=== PATIENT | female | born 1960 | race Caucasian/White ===

== ENCOUNTER → 2016-11-02 | Outpatient (CLI) | payer BC ==
[2016-11-02 14:39] LABS: Basophils % (A) 0 %; CH 30.3; CHCM 32.9; Eosinophils # (A) 0.2 k/uL (0-0.7); Eosinophils % (A) 3 %; HCT 43.2 % (34.0-46.0); HDW 2.33; HGB 14.3 gm/dL (11.4-16.0); Luc # (Auto) 0.11; Luc % (Auto) 2; Lymphocytes # (A) 2.4 k/uL (1.0-4.8); Lymphocytes % (A) 31 %; MCH 30.5 pg (25.0-35.0); MCV 92.5 fL (80.0-100.0); Mean Platelet Volume 7.1; Monocytes # (A) 0.3 k/uL (0-1.0); Monocytes % (A) 4 %; Neutrophils # (A) 4.7 k/uL (1.3-7.7); Neutrophils % (A) 61 %; RBC 4.67 m/uL (3.80-5.40); RDW 13.1 % (11.5-15.5); WBC 7.7 k/uL (3.8-10.6); WBC (Perox) 7.84
[2016-11-02 14:44] LABS: Partial Thromboplastin Time 24.2 sec (22.0-30.0); Prothrombin Time 10.1 sec (9.0-12.0)
[2016-11-02 14:50] LABS: Anion Gap 11 mmol/L; Blood Urea Nitrogen 13 mg/dL (7-17); Calcium 10.1 mg/dL (8.4-10.2); Carbon Dioxide 27 mmol/L (22-30); Chloride 103 mmol/L (98-107); Glucose 102 mg/dL (74-99); Non-African American GFR(MDRD) >60 (>60 ml/min/1.73 sqM); Potassium 4.6 mmol/L (3.5-5.1); Sodium 141 mmol/L (137-145)
[2016-11-02 15:01] LABS: Appearance,Urine Clear (Clear); Bacteria,Urine Rare /hpf; Bilirubin,Urine Negative (Negative); Glucose,Urine (UA) 3+ (Negative); Ketones,Urine Negative (Negative); Leukocyte Esterase,Urine Small (Negative); Mucus,Urine Rare /hpf; Nitrite,Urine Negative (Negative); PH, Urine 5.5 (5.0-8.0); Particle Count 1696; Protein,Urine Negative (Negative); RBC,Urine <1 /hpf (0-5); Specific Gravity,Urine 1.011 (1.001-1.035); Squamous Epithelial Cell,Urine <1 /hpf (0-4); UA Billing (MACRO vs. MICRO) MICRO; Urobilinogen,Urine <2.0 mg/dL (<2.0); WBC,Urine 2 /hpf (0-5)
--- NOTE | 2016-11-02 15:59 | XR ---
EXAMINATION TYPE: XR chest 2V DATE OF EXAM: 11/02/2016 2:45 PM COMPARISON: Prior chest x-ray second of March 2016 HISTORY: Presurgical testing TECHNIQUE: Frontal and lateral views of the chest are obtained. FINDINGS: There is no focal air space opacity, pleural effusion, or pneumothorax seen. The cardiac silhouette size is within normal limits. Lung volumes are prominent. Postop change noted in the lowe r cervical spine, right shoulder. The osseous structures are intact. IMPRESSION: No acute cardiopulmonary process.
== END ==
LOC: LABPAT 14:09
PROVIDERS: ATTEND Orthopaedic Surgery Orthopaedic Surgery of the Spine
DX: Z01.818 Encounter for other preprocedural examination (principal); Z01.810 Encounter for preprocedural cardiovascular examination; Z01.812 Encounter for preprocedural laboratory examination
CPT/HCPCS: 36415; 71020; 80048; 81001; 85025; 85610; 85730; 86850; 86900; 86901; 87070

== ENCOUNTER 2016-11-08 06:24 | Day surgery (SDC) | payer BC ==
[~2016-11-08 06:24] MED LIST: BACITRACIN 50,000 UNIT, POLYMYXIN B 500,000 UNIT in SODIUM CHLORIDE 0.9% IRRIGATIO 1,00... IRRIGATION ONE; DEXAMETHASONE SOD PHOSPHATE 10 MG/ML 1 ML VIAL IV ONE; LACTATED RINGERS 1,000 ML IV SCH; MIDAZOLAM 2 MG/2 ML VIAL IV PRN; ONDANSETRON 4 MG/2 ML VIAL IVP ONE; SCOPOLAMINE 1.5MG/72HR PATCH TRANSDERM ONE; ceFAZolin 2 GM in SODIUM CHLORIDE 0.9% 100 ML IVPB ONE; fentaNYL (PF) 50 MCG/ML 2 ML AMP IV PRN
[2016-11-08] MEDS ORDERED: LIDOCAINE 1% 20 ML VIAL (10MG/ML) FOR IV START INTRADERMA ONE (07:08)
[2016-11-08 07:17] LABS: Glucose,Whole Blood 129 mg/dL (75-99)
[2016-11-08] MEDS ORDERED: GELATIN SPONGE,ABSORB (LARGE) 1 EACH SPONGE TOPICAL ONE (07:36)
[2016-11-08] MEDS ORDERED: fentaNYL (PF) 50 MCG/ML 2 ML AMP ONE (07:36)
[2016-11-08] MEDS ORDERED: LIDOCAINE 0.5%-EPI 1:200,000 50 ML VIAL SQ ONE (07:36)
[2016-11-08] MEDS ORDERED: SUCCINYLCHOLINE CHLORIDE 100 MG/5 ML SYR IV ONE (07:36)
[2016-11-08] MEDS ORDERED: ROCURONIUM BROMIDE 10 MG/ML 10 ML VIAL IV ONE (07:36)
[2016-11-08] MEDS ORDERED: MIDAZOLAM 2 MG/2 ML VIAL ONE (07:36)
[2016-11-08] MEDS ORDERED: THROMBIN (BOVINE) 5,000 UNIT VIAL TOPICAL ONE (07:36)
[2016-11-08] MEDS ORDERED: PROPOFOL 10 MG/ML 20 ML VIAL IV ONE (07:36)
[2016-11-08] MEDS ORDERED: BUPIVACAINE (PF) 0.25% 30 ML VIAL SQ ONE (07:36)
[2016-11-08] MEDS ORDERED: PHENYLEPHRINE-0.9% NACL SYG 1 MG/10 ML SYRINGE ONE (07:36)
[2016-11-08] MEDS ORDERED: methylPREDNISolone ACETATE 40 MG/ML 1 ML VIAL MISCELLANE ONE (07:36)
--- NOTE | 2016-11-08 08:44 | FL ---
EXAMINATION TYPE: FL guidance operating room DATE OF EXAM: 11/08/2016 8:21 AM HISTORY: Flouroscopy time 1 seconds of fluoroscopy provided. IMPRESSION: 1. Fluoroscopy time.
--- NOTE | 2016-11-08 08:46 | XR ---
EXAM TYPE: LUMBAR SPINE X RAY SERIES COMPARISON: NONE HISTORY: Lumbar laminectomy TECHNIQUE: 4 views are submitted. FINDINGS: Surgical metallic instrument posterior to the lower lumbar spine. IMPRESSION: 1. Intraoperative localization
--- NOTE | 2016-11-08 08:48 | P.OP ---
Date of Procedure: 11/08/16 Preoperative Diagnosis: Herniated nucleus pulposis L4 5 Left lower extremity radiculopathy History of prior surgery L5-S1 Postoperative Diagnosis: Same Anesthesia: GETA Pathology: none sent Condition: stable Disposition: PACU Description of Procedure: BRIEF OPERATIVE NOTE Preoperative Diagnosis: Herniated nucleus pulposis L4 5, stenosis L4 5, left lower extremity radiculopathy Postoperative Diagnosis: Same Procedure: Laminectomy and decompression L4 5 with foraminotomies and partial facetectomy Discectomy for decompression L4 5 Surgeon: Dr. Mclean Emulsification Operator: Broderick Mcleod is present throughout the entire the case persistence during positioning, dissection, exposure, visualization, and all crucial elements of the case as well as closure. Anesthesia: General anesthesia Estimated blood loss: Less than 20 mL Complications: None apparent Components implanted: None Disposition: To recovery room in good stable condition. OPERATIVE INDICATIONS The patient has been having issues in their lower back and lower extremities. She is found have a disc herniation at L4 5 on the left with correlated well with her back and lower extremity symptoms of the left. She has had prior surgery at L5-S1 in the past with wide laminectomy. The patient has been through conservative treatment for her new issues of L4 5 disc herniation but was not having any prolonged benefit despite aggressive conservative treatment. We discussed various treatment options including surgery, and the patient wishes to proceed with surgery We discussed the risk, patient's alternatives and benefits of surgery including but not limited to, risk of bleeding risk of infection, risk of need for further surgery, risk of decreased, loss of motion, loss of function, nerve damage, paralysis, heart attack, blindness and . OPERATIVE SUMMARY After discussing all the risks, patient alternatives and benefits at length, the patient elected to proceed with surgical intervention, signed informed consent, and presented for their procedure. The patient was seen and examined in the preoperative holding area and the surgical site was marked. The patient was given antibiotics and brought to the operating room. The patient was sedated and intubated by anesthesia in standard fashion. The patient was positioned on to the operating room table in a prone position on the appropriate frame which was well-padded and well molded. We were careful to pad any bony prominences and pressure points. We were careful to maintain the patient's cervical spine and good neutral alignment and position throughout. The patient was prepped and draped in a normal standard fashion. An appropriate timeout and keystone protocol performed. We were able to proceed with the surgery. Fluoroscopy was utilized to establish the appropriate level. The local wound area was infiltrated with local anesthetic. An incision was made at the midline longitudinally over the appropriate levels of L4 5. Dissection was taken down subcutaneously to the level of the fascia which was split midline. Dissection was taken over the lamina. Intraoperative fluoroscopy was taken which showed a marker at the appropriate level at L4 5. With the appropriate level positively confirmed, we were able to proceed with laminectomy. The wound was copiously irrigated and suctioned dry as had been done periodically throughout the case. I performed a laminectomy with a combination of curettes and a high-speed bur and Kerrison rongeurs. A small medial facetectomy was performed again further access. A partial foraminotomy was also performed. Portions of the ligamentum flavum were taken down to expose the dura and traversing nerve root. I was able to mobilize the traversing nerve root and gain access to the disc space. Note was made of obvious compression from the disc. Protecting the soft tissue structures, a small annulotomy was established. I was able to perform discectomy and remove any extruded disc fragments and any loose fragments from within the disc itself. There was a large amount of extruded fragment which was removed. There is some significant disc desiccation noted. I tried to preserve the disc annulus that appeared stable. There were no further extruded fragments noted. There is no evidence of dural tear or leak. Good hemostasis maintained. The wound was copiously irrigated and suctioned dry. Good decompression and discectomy was noted. We were able to proceed with closure. The fascia was closed for a watertight closure. The subcuticular tissue was closed with absorbable suture. The wound was cleaned and dried and dressed with the appropriate dressing. The drapes were broken down. The patient was gently rolled back onto their hospital bed being careful to maintain their cervical spine and good neutral alignment and position. They were woken up by anesthesia, extubated, and brought to the recovery room in good stable condition. The patient will be admitted to the hospital for observation and for appropriate postoperative care, medical management and monitoring. We will continue to follow them closely about the postoperative course.
[2016-11-08] MEDS ORDERED: IBUPROFEN 600 MG TAB PO PRN (08:49)
[2016-11-08] MEDS ORDERED: DIAZEPAM 5 MG TAB PO PRN (08:49)
[2016-11-08] MEDS ORDERED: KETOROLAC 30 MG/ML 1 ML VIAL IVP PRN (08:49)
[2016-11-08] MEDS ORDERED: BENZOCAINE/MENTHOL LOZENG 1 EACH LOZENGE MUCOUS MEM PRN (08:49)
[2016-11-08] MEDS ORDERED: ALBUTEROL NEBULIZED 2.5 MG/3 ML INHALATION PRN (08:51)
[2016-11-08] MEDS ORDERED: LORazepam 1 MG TAB PO PRN (08:51)
[2016-11-08] MEDS ORDERED: HYDROcodone/APAP 7.5-325MG 1 EACH TAB PO PRN (08:51)
[2016-11-08] MEDS ORDERED: SODIUM CHLORIDE 0.9% 1,000 ML IV SCH (09:00)
[2016-11-08 09:29] LABS: Glucose,Whole Blood 134 mg/dL (75-99)
[2016-11-08] MEDS ORDERED: ATORVASTATIN 20 MG TAB PO SCH (09:30)
[2016-11-08] MEDS ORDERED: LORATADINE 10 MG TAB PO SCH (09:30)
[2016-11-08] MEDS ORDERED: FAMOTIDINE 20 MG TAB PO SCH (09:30)
[2016-11-08] MEDS ORDERED: ASPIRIN 81 MG CHEW PO SCH (09:30)
[2016-11-08] MEDS ORDERED: FLUoxetine HCL 20 MG CAP PO SCH (09:30)
[2016-11-08] MEDS ORDERED: OXYBUTYNIN XL 5 MG TAB.ER.24 PO SCH (09:45)
[2016-11-08] MEDS ORDERED: LOSARTAN 25 MG TAB PO SCH (09:45)
[2016-11-08] MEDS: GABAPENTIN 100 MG CAP PO SCH ×2 (11:14→15:32)
[2016-11-08 11:52] LABS: Glucose,Whole Blood 111 mg/dL (75-99)
[2016-11-08 12:07] VITALS: BMI 29.1
[2016-11-08] MEDS ORDERED: ceFAZolin 2 GM in SODIUM CHLORIDE 0.9% 100 ML IVPB SCH (15:00)
[2016-11-08 16:26] VITALS: BP 110/64; PULSE 73; RESP 16; TEMP 97.9
[2016-11-08] MEDS ORDERED: metFORMIN 500 MG TAB PO SCH (17:30)
== END 2016-11-08 16:45 | disposition home or self-care (01) ==
LOC: OR 06:24 → 5MS5E 08:55 → OR 16:45
PROVIDERS: ATTEND Orthopaedic Surgery Orthopaedic Surgery of the Spine
DX: M51.16 Intervertebral disc disorders with radiculopathy, lumbar region (principal); Z98.1 Arthrodesis status; I10 Essential (primary) hypertension; E78.5 Hyperlipidemia, unspecified; E11.9 Type 2 diabetes mellitus without complications; Z79.84 Long term (current) use of oral hypoglycemic drugs; K21.9 Gastro-esophageal reflux disease without esophagitis; J45.909 Unspecified asthma, uncomplicated; Z79.899 Other long term (current) drug therapy; Z88.5 Allergy status to narcotic agent; Z88.2 Allergy status to sulfonamides; Z91.040 Latex allergy status
CPT/HCPCS: 72020; 63047; J2250; J1030; J0690; J2405; J3010; J1885; J2370; J0330; J2704; 86850; 86900; 86901

== ENCOUNTER 2017-03-21 17:13 | Emergency (ER) | payer BC ==
[2017-03-21 17:20] VITALS: BP 158/82; PULSE 77; RESP 18; TEMP 97.9
[2017-03-21] MEDS ORDERED: ORPHENADRINE 30 MG/ML 2 ML VIAL IVP STA (17:24)
[2017-03-21] MEDS ORDERED: HYDROmorphone 1 MG/ML 1 ML SYRINGE IVP STA (17:24)
[2017-03-21] MEDS ORDERED: methylPREDNISolone SOD SUCCI 125 MG/2 ML VIAL IV STA (17:24)
--- NOTE | 2017-03-21 17:43 | ED ---
General Adult HPI - General Chief complaint: Back Pain/Injury Stated complaint: back pain Time Seen by Provider: 03/21/17 17:15 Source: patient, RN notes reviewed Mode of arrival: EMS Limitations: no limitations - History of Present Illness Initial comments: 57 yo female presents to the ER with cc of left sided leg pain and back pain. Patient admits to a history of sciatica in the past. patient states she recently had lumbar surgery by DR. mclean and has had complete resolution of symptoms for about 1 month. she states this pain started on sunday. It radiates down the left leg like it has done in the past causing burning type pain. she tried her at home norco without much relief of her symptoms. she denies any loss of bowel or bladder function or saddle anesthesia. she has been able to ambulate however with pain. she denies any falls trauma or injury. she states biking is the only different activity she did recently. Patient denies any recent fever, chills, shortness of breath, chest pain, abdominal pain, nausea vomiting, numbness or tingling, dysuria or hematuria, constipation or diarrhea, headaches or visual changes, or any other current symptoms. - Related Data Home Medications Medication Instructions Recorded Confirmed Aspirin [Adult Low Dose Aspirin EC] 81 mg PO DAILY 07/16/15 03/21/17 FLUoxetine HCL 40 mg PO DAILY 07/16/15 03/21/17 Losartan Potassium 25 mg PO DAILY 07/16/15 03/21/17 Tolterodine Tartrate [Detrol LA] 4 mg PO DAILY 07/16/15 03/21/17 metFORMIN HCL 1,000 mg PO AC-BID 07/16/15 03/21/17 Albuterol Inhaler [Ventolin Hfa 2 puff INHALATION RT-QID PRN 03/14/16 03/21/17 Inhaler] Simvastatin [Zocor] 40 mg PO DAILY 03/14/16 03/21/17 Ranitidine HCl 150 mg PO BID 03/22/16 03/21/17 Fexofenadine HCl 180 mg PO DAILY 03/27/16 03/21/17 Gabapentin [Neurontin] 300 mg PO TID 03/21/17 03/21/17 Previous Rx's Medication Instructions Recorded LORazepam [Ativan] 1 mg PO TID PRN #30 tab 07/22/15 HYDROcodone/APAP 7.5-325MG [[place] 1 tab PO Q6HR PRN #90 tab 11/08/16 7.5-325] Orphenadrine [Norflex] 100 mg PO Q12H #10 tablet.er 03/21/17 predniSONE 50 mg PO DAILY #5 tab 03/21/17 Allergies Allergy/AdvReac Type Severity Reaction Status Date / Time oxycodone HCl Allergy Severe Stopped Verified 03/21/17 17:28 [From OxyContin] Breathing latex Allergy Rash/Hives Verified 03/21/17 17:28 Sulfa (Sulfonamide Allergy Rash/Hives Verified 03/21/17 17:28 Antibiotics) sulfamethoxazole Allergy Rash/Hives Verified 03/21/17 17:28 [From Septra] trimethoprim [From Marra] Allergy Rash/Hives Verified 03/21/17 17:28 Review of Systems ROS Statement: Those systems with pertinent positive or pertinent negative responses have been documented in the HPI. ROS Other: All systems not noted in ROS Statement are negative. Past Medical History Past Medical History: Diabetes Mellitus, GERD/Reflux, Hyperlipidemia, Hypertension Additional Past Medical History / Comment(s): hx migraines, overactive bladder, CERVIAL STENOSIS HERNIATED DISC History of Any Multi-Drug Resistant Organisms: None Reported Past Surgical History: Back Surgery Additional Past Surgical History / Comment(s): rt shoulder surgery-fx, 03-27-16 CERVICAL DISCETOMY/FUSION C5-6, C6-7 Past Anesthesia/Blood Transfusion Reactions: No Reported Reaction Additional Past Anesthesia/Blood Transfusion Reaction / Comment(s): BLOOD TRANSFUSION IN PAST-NE REACTION. Past Psychological History: Anxiety, Depression Smoking Status: Never smoker Past Alcohol Use History: Occasional Past Drug Use History: None Reported - Past Family History Sister(s) Family Medical History: Cancer Mother Family Medical History: Diabetes Mellitus, Hypertension Father Family Medical History: COPD General Exam Limitations: no limitations General appearance: alert, in no apparent distress Head exam: Present: atraumatic, normocephalic, normal inspection ENT exam: Present: normal exam, mucous membranes moist Neck exam: Present: normal inspection. Absent: tenderness, meningismus, lymphadenopathy Respiratory exam: Present: normal lung sounds bilaterally. Absent: respiratory distress, wheezes, rales, rhonchi, stridor Cardiovascular Exam: Present: regular rate, normal rhythm, normal heart sounds. Absent: systolic murmur, diastolic murmur, rubs, gallop, clicks Extremities exam: Present: normal inspection, full ROM, normal capillary refill. Absent: tenderness, pedal edema, joint swelling, calf tenderness Back exam: Present: normal inspection. Absent: full ROM (limited diffuse due to pain), tenderness, vertebral tenderness, rash noted Expanded Back exam: Absent: saddle anesthesia Back exam: Sciatic Notch Tenderness: Left, Positive Straight Leg Raise: Left, Negative Straight Leg Raising: Right Neurological exam: Present: alert, oriented X3 Psychiatric exam: Present: normal affect, normal mood Skin exam: Present: warm, dry, intact, normal color. Absent: rash Course Vital Signs 03/21/17 17:16 Temperature 97.9 F Pulse Rate 77 Respiratory 18 Rate Blood Pressure 158/82 O2 Sat by Pulse 96 Oximetry Medical Decision Making - Medical Decision Making 57 yo female presents with sciatica like symptoms similar to pain she has had in the past. at this time we did treat the patient's discomfort and started her on steroids for home as well as muscle relaxers. We did discuss close follow up with Dr. Mclean. We discussed return parameters and all of the patient questions. she stated that she understood and she is in agreement with plan. At this time the patient will be discharged home. Disposition Clinical Impression: Left sided sciatica Disposition: HOME SELF-CARE Condition: Stable Instructions: Sciatica (ED) Additional Instructions: Please use medication as discussed. Please follow up with family doctor if symptoms have not improved over the next two days. Please return to the emergency room if your symptoms increase or worsen or for any other concerns. Prescriptions: Orphenadrine [Norflex] 100 mg PO Q12H #10 tablet.er predniSONE 50 mg PO DAILY #5 tab Referrals: Jorge Mclean DO [Doctor of Osteopathic Medicine] - 1-2 days Time of Disposition: 18:03
== END 2017-03-21 18:16 | disposition home or self-care (01) ==
LOC: EC 17:13
DX: M54.32 Sciatica, left side (principal); E78.5 Hyperlipidemia, unspecified; I10 Essential (primary) hypertension; E11.9 Type 2 diabetes mellitus without complications; K21.9 Gastro-esophageal reflux disease without esophagitis; N32.81 Overactive bladder; F32.9 Major depressive disorder, single episode, unspecified; F41.9 Anxiety disorder, unspecified; Z79.82 Long term (current) use of aspirin; Z79.84 Long term (current) use of oral hypoglycemic drugs; Z79.899 Other long term (current) drug therapy; Z88.1 Allergy status to other antibiotic agents; Z88.2 Allergy status to sulfonamides; Z88.5 Allergy status to narcotic agent; Z91.040 Latex allergy status; Z87.39 Personal history of other diseases of the musculoskeletal system and connective tissue; Z98.1 Arthrodesis status
CPT/HCPCS: 99284; 96374; 96375 ×2; J2360; J2930; J1170

== ENCOUNTER → 2018-01-21 | Outpatient (CLI) | payer MEDICARE ==
--- NOTE | 2018-01-21 20:35 | CT ---
EXAMINATION TYPE: CT brain w con DATE OF EXAM: 01/21/2018 COMPARISON: 07/16/2015 HISTORY: Headache CT DLP: mGycm Automated exposure control for dose reduction was used. CONTRAST: The IV contrast was Isovue 100 mL. FINDINGS: Ventricles have normal size. There is no mass effect nor midline shift. There is no sign of intracran ial hemorrhage. Calvarium is intact. There is no pathologic enhancement. IMPRESSION: Normal CT scan of the brain. No change.
== END | disposition home or self-care (01) ==
LOC: RADCTMAIN 18:18
PROVIDERS: ATTEND Internal Medicine
DX: R20.2 Paresthesia of skin (principal)
CPT/HCPCS: 70460; Q9967

== ENCOUNTER → 2018-02-18 | Outpatient (CLI) | payer MEDICARE ==
--- NOTE | 2018-02-28 17:24 | MM ---
Reason for exam: screening (asymptomatic). History: Patient is postmenopausal. Family history of breast cancer in sister. MG 3D Screening Mammo W/Cad Bilateral CC and MLO view(s) were taken. The breast tissue is heterogeneously dense. This may lower the sensitivity of mammography. Chronic nodularity bilateral made apparent on the 3D images. No significant changes when compared with prior studies. ASSESSMENT: Benign, BI-RAD 2 RECOMMENDATION: Routine screening mammogram of both breasts in 1 year.
== END | disposition home or self-care (01) ==
LOC: RADMAMWWP 09:08
PROVIDERS: ATTEND Internal Medicine
DX: Z12.31 Encounter for screening mammogram for malignant neoplasm of breast (principal)
CPT/HCPCS: 77063; 77067

== ENCOUNTER → 2018-02-27 | Outpatient (CLI) | payer MEDICARE ==
--- NOTE | 2018-02-27 18:46 | MR ---
EXAMINATION TYPE: MR lumbar spine wo/w con DATE OF EXAM: 02/27/2018 COMPARISON: NONE HISTORY: Numbness in Foot and Calf, Knee Buckling, Previous Back surgery, Gadavist 7.5ml TECHNIQUE: T1 and T2 axial and sagittal images of the lumbar spine are submitted. FINDINGS: There is no abnormal signal seen within the visualized spinal cord or paraspinal soft tissu es. At L1-2 there is facet arthropathy but no canal stenosis, disc herniation or foraminal encroachment. At L2-3 there is facet arthropathy but no disc herniation, canal stenosis, or foraminal encroachment. At L3-4 there is advanced facet arthropathy but no evidence of canal stenosis or foraminal encroachme nt. No disc herniation. At L4-5 there is loss of disc signal and space there is an area of abnormal signal paracentrally to t he left. There is enhancement both posterior to the thecal sac and extending along the left lateral m argin of the thecal sac which may represent scar or granulation tissue. No enhancement within the dis c space noted. Findings are suggestive of a left paracentral disc herniation with impingement of the nerve root. At L5-S1 there is postsurgical change with discogenic marrow changes and severe degenerative disc dis ease. No canal stenosis or focal herniation. Facet arthropathy is seen and there is no significant fo raminal encroachment. There is enhancement with regard to the disc space. This could be postsurgical correlate clinically t o exclude a discitis. IMPRESSION: 1. Abnormal signal paracentrally to the left L4-L5 suggestive of a focal disc herniation with probabl e compression of the left nerve root. Enhancement along the left lateral and posterior margin of the thecal sac may represent granulation tissue or scar from previous surgery correlate clinically. 2. Postsurgical change L5-S1 with enhancement of the disc which could be postsurgical. Correlate clin ically to exclude a discitis. A Yellow level critical message alert has been initiated for Mikey Morrison MD via the [employer] Critical Results System on 02/27/2018 6:41 PM. This message alert has been sent to Mikey huerta MD via the preferences provided by the clinician for the receipt of Radiology Critical Findings. M essage ID [id number].
--- NOTE | 2018-02-27 19:52 | MR ---
EXAMINATION TYPE: MR thoracic spine wo con DATE OF EXAM: 02/27/2018 COMPARISON: None HISTORY: Numbness in Foot and Calf, Knee Buckling, Previous Back surgery, Standard multiplanar, multisequence MRI departmental protocol Multiplanar, multisequence images of the thoracic spine were acquired. FINDINGS: Postsurgical change involving the lower cervical spine. Vertebral body height and disc interspace appears to be preserved with the exception of T7-T8 with lo ss of disc signal and space. At T7-T8 there is a focal left paracentral disc herniation which results in anterior cord compression . At T12-L1 there is minimal central disc bulging but no canal stenosis or foraminal encroachment. Remaining levels demonstrate no disc herniation or canal stenosis. No abnormal signal in spinal cord. Paraspinal soft tissue structures demonstrate no definite abnormal ity. Mild hypertrophic spurring anteriorly at multiple levels. Neural foramina appear to be patent. Incidental note is made of cardiomegaly. IMPRESSION: 1. Left paracentral disc herniation T7-T8 with anterior compression of the spinal cord. No abnormal s ignal within the visualized spinal cord. 2. Minimal central disc bulging T12-L1 with no canal stenosis or foraminal encroachment.
== END | disposition home or self-care (01) ==
LOC: RADMRIMAIN 16:40
PROVIDERS: ATTEND Internal Medicine
DX: M51.14 Intervertebral disc disorders with radiculopathy, thoracic region (principal); Z98.890 Other specified postprocedural states
CPT/HCPCS: 72146; 72158; A9581

== ENCOUNTER → 2018-04-06 | Outpatient (CLI) | payer MEDICARE ==
--- NOTE | 2018-04-07 09:25 | CT ---
EXAMINATION TYPE: CT lumbar spine wo con DATE OF EXAM: 04/06/2018 10:01 AM COMPARISON: X-ray 04/06/2018, MRI lumbar spine 02/27/2018 HISTORY: Low back pain CT DLP: 777.0 mGycm Automated exposure control for dose reduction was used. Unenhanced CT of the lumbar spine was performed. Bone and soft tissue window settings are submitted as well as coronal and sagittal reconstructions. L1-L2: Normal disc space height. No disc herniation protrusion or central stenosis. No facet joint arthropathy. No evidence for foraminal encroachment. Facet arthropathy noted. L2-L3: Normal disc space height. No disc herniation protrusion or central stenosis. No facet joint arthropathy. No evidence for foraminal encroachment. Facet arthropathy noted. L3-L4: Normal disc space height. No disc herniation protrusion or central stenosis. No facet joint arthropathy. No evidence for foraminal encroachment. Facet arthropathy noted. L4-L5: Degenerative disc disease with hypertrophic spurring anteriorly. There is abnormal signal comp atible with circumferential disc bulging with effacement of thecal sac. There again appears to be abn ormal signal paracentrally to left with likely compressing the left exiting nerve root compatible wit h disc herniation. Canal stenosis suggested. L5-S1: Postsurgical changes with severe degenerative disc disease. Hypertrophic changes of the facets are noted. Mild bilateral foraminal encroachment. No Canal stenosis. Abnormal attenuation posterior to the spinal canal L5 extending to the L4-L5 level most likely the basis of postoperative scar or gr anulation tissue. Incidental note is made of cholelithiasis. Suggestion surgical clips in the right lower quadrant of t he abdomen. IMPRESSION: 1. Degenerative disc disease with disc bulging and more focal left paracentral suspected disc herniat ion L4-L5 with compression of the thecal sac. Disc material appears to extend posterior to the upper margin of the L5 vertebral segment paracentrally to the left. There likely is mass effect upon the ex iting nerve root. 2. Postsurgical change L5-S1. Changes in the disc space may be related to previous surgery as noted b y recent MRI recommended with discitis but correlate clinically. 3. Cholelithiasis.
--- NOTE | 2018-04-07 22:35 | XR ---
EXAMINATION TYPE: XR lumbar spine with bend/flex DATE OF EXAM: 04/06/2018 COMPARISON: NONE HISTORY: 58-year-old female lumbar region spondylolisthesis, low back pain TECHNIQUE: 8 views FINDINGS: Laminectomy changes at L4-L5. Vertebral body heights are maintained. 5 lumbar type vertebral bodies. Hypertrophic facet arthropathy mid to lower lumbar spine. No evident pars defect. Moderate disc space narrowing at L4-L5 and moderate to severe at L5-S1. Alignment is maintained. Flexion and extension shows no dynamic subluxation. IMPRESSION: 1. Moderate degenerative disc disease L4-L5 and moderate to severe at L5-S1. 2. Hypertrophic facet arthropathy throughout especially mid to lower lumbar spine. 3. No vertebral compression collapse. 4. No malalignment or dynamic subluxation.
== END | disposition home or self-care (01) ==
LOC: RADCTMAIN 09:34
PROVIDERS: ATTEND Neurological Surgery
DX: M51.17 Intervertebral disc disorders with radiculopathy, lumbosacral region (principal); M46.96 Unspecified inflammatory spondylopathy, lumbar region; Z98.890 Other specified postprocedural states
CPT/HCPCS: 72114; 72131

== ENCOUNTER → 2018-05-23 | Outpatient (CLI) | payer MEDICARE ==
[2018-05-23 13:44] LABS: Appearance,Urine Clear (Clear); Bilirubin,Urine Negative (Negative); Blood,Urine Negative (Negative); Color,Urine Yellow; Glucose,Urine (UA) 4+ (Negative); Ketones,Urine 1+ (Negative); Leukocyte Esterase,Urine Moderate (Negative); Mucus,Urine Moderate /hpf; Nitrite,Urine Negative (Negative); PH, Urine 5.5 (5.0-8.0); Protein,Urine Trace (Negative); RBC,Urine 2 /hpf (0-5); Specific Gravity,Urine 1.021 (1.001-1.035); Squamous Epithelial Cell,Urine 1 /hpf (0-4); Urobilinogen,Urine <2.0 mg/dL (<2.0)
[2018-05-23 13:49] LABS: Partial Thromboplastin Time 23.1 sec (22.0-30.0); Prothrombin Time 9.9 sec (9.0-12.0)
--- NOTE | 2018-05-23 13:53 | XR ---
EXAMINATION TYPE: XR chest 2V DATE OF EXAM: 05/23/2018 COMPARISON: 11/02/2016 TECHNIQUE: PA and lateral views submitted. HISTORY: Presurgical FINDINGS: The lungs are clear and there is no pneumothorax, pleural effusion, or focal pneumonia. Dr. Anderson The cervical spine and right shoulder. No overt failure. Hypertrophic changes of the vertebral column . IMPRESSION: 1. No acute process.
[2018-05-23 14:00] LABS: Basophils % (A) 0 %; Eosinophils # (A) 0.2 k/uL (0-0.7); Eosinophils % (A) 2 %; HCT 45.5 % (34.0-46.0); HGB 14.9 gm/dL (11.4-16.0); Lymphocytes # (A) 2.7 k/uL (1.0-4.8); Lymphocytes % (A) 32 %; MCH 29.2 pg (25.0-35.0); MCHC 32.7 g/dL (31.0-37.0); MCV 89.3 fL (80.0-100.0); Mean Platelet Volume 7.3; Monocytes # (A) 0.3 k/uL (0-1.0); Monocytes % (A) 4 %; Neutrophils # (A) 4.9 k/uL (1.3-7.7); Neutrophils % (A) 60 %; Platelet Count 250 k/uL (150-450); RDW 12.6 % (11.5-15.5); WBC 8.2 k/uL (3.8-10.6)
[2018-05-23 19:31] LABS: Albumin 4.4 g/dL (3.80-4.90); Albumin/Globulin Ratio 2.44 (1.20-2.10); Anion Gap 7.2 mmol/L (4.00-12.00); Calcium 9.8 mg/dL (8.7-10.3); Carbon Dioxide 27.8 mmol/L (21.6-31.8); Globulin 1.8 g/dL (2.1-3.7); Potassium 4.8 mmol/L (3.5-5.5); Total Bilirubin 0.3 mg/dL (0.3-1.2); Total Protein 6.2 g/dL (6.2-8.2)
== END | disposition home or self-care (01) ==
LOC: LABWHC1 12:28
PROVIDERS: ATTEND Neurological Surgery
DX: Z01.818 Encounter for other preprocedural examination (principal); Z01.812 Encounter for preprocedural laboratory examination; M43.16 Spondylolisthesis, lumbar region; M47.26 Other spondylosis with radiculopathy, lumbar region
CPT/HCPCS: 36415; 71046; 80053; 81001; 85025; 85610; 85730; 87070; 87086

== ENCOUNTER → 2018-08-20 | Outpatient (CLI) | payer MEDICARE ==
--- NOTE | 2018-08-20 16:29 | US ---
EXAMINATION TYPE: US transvaginal DATE OF EXAM: 08/20/2018 COMPARISON: None CLINICAL HISTORY: N92.1 MENORRHAGIA. [employer] x years, vaginal bleeding. Tubal ligation in 1983. TECHNIQUE: Transvaginal (TV). Date of LMP: [employer], EXAM MEASUREMENTS: Uterus: 5.6 X 3.0 X 1.9 cm Endometrial Stripe: 0.1 cm 1. Uterus: Anteverted Appears small and heterogenous 2. Endometrium: fluid seen in endometrial cavity 3. Right Ovary: Obscured by overlying bowel gas 4. Left Ovary: Obscured by overlying bowel gas 5. Bilateral Adnexa: wnl 6. Posterior cul-de-sac: no free fluid IMPRESSION: 1. Normal pelvic ultrasound. Some limitation bowel gas
== END | disposition home or self-care (01) ==
LOC: RADUSWWP 11:04
PROVIDERS: ATTEND Internal Medicine
DX: N92.1 Excessive and frequent menstruation with irregular cycle (principal)
CPT/HCPCS: 76830

== ENCOUNTER → 2019-04-02 | Outpatient (CLI) | payer MEDICARE ==
--- NOTE | 2019-04-03 08:42 | MM ---
Reason for exam: screening (asymptomatic). Last mammogram was performed 1 year and 1 month ago. History: Patient is postmenopausal. Family history of breast cancer in sister. Physical Findings: A clinical breast exam by your physician is recommended on an annual basis and results should be correlated with mammographic findings. MG 3D Screening Mammo W/Cad Bilateral CC, MLO, and XCCL view(s) were taken. Prior study comparison: February 18, 2018, bilateral MG 3d screening mammo w/cad. The breast tissue is heterogeneously dense. This may lower the sensitivity of mammography. There is chronic nodularity bilaterally. No significant changes when compared with prior studies. ASSESSMENT: Benign, BI-RAD 2 RECOMMENDATION: Routine screening mammogram of both breasts in 1 year.
== END | disposition home or self-care (01) ==
LOC: RADMAMWWP 10:43
PROVIDERS: ATTEND Internal Medicine
DX: Z12.31 Encounter for screening mammogram for malignant neoplasm of breast (principal)
CPT/HCPCS: 77063; 77067

== ENCOUNTER → 2019-04-18 | Outpatient (CLI) | payer MEDICARE ==
--- NOTE | 2019-04-18 12:09 | BD ---
EXAMINATION TYPE: Axial Bone Density DATE OF EXAM: 04/18/2019 COMPARISON: NONE CLINICAL HISTORY: N 95.1 Height: 64 Weight: 168 FRAX RISK QUESTIONS: Alcohol (3 or more units per day): no Family History (Parent hip fracture): no Glucocorticoids (More than 3mos): no (Ex: prednisone, prednisolone, methylprednisolone, dexamethasone, and hydrocortisone). History of Fracture in Adulthood: yes Secondary Osteoporosis: 1. Type 1 Diabetes: no 2. Hyperthyroidism: no 3. Menopause before 45: no 4. Malnutrition: no 5. Chronic liver disease: no Rheumatoid Arthritis: no Current Tobacco Use: no RISK FACTORS HISTORY OF: Surgery to Spine: yes, cervical & lumbar When: lumbar laminectomy 2017, plus 2 previous lumbar surgeries Family History of Osteoporosis: unsure Active: yes Diet low in dairy products/other sources of calcium: at least one serving a day Postmenopausal woman: yes Take estrogen and/or progesterone medications: no Lost more than 2 inches in height since high school: no Frequent falls: no Poor Health: no Hyperparathyroidism: no Adrenal Insufficiency: no MEDICATIONS: Prednisone or other steroids: no Thyroid Medications: no Osteoporosis Medications: no Additional Medications: blood pressure med , cholesterol med, metformin & another med for diabetes Additional History: type 2 diabetic EXAM MEASUREMENTS: Bone mineral densitometry was performed using the [employer] System. Bone mineral density NOT measured about the Lumbar spine because of previous surgeries in that area Bone mineral density about the R hip (g/cm2): 1.088 Bone mineral density about the L hip (g/cm2): 1.044 T Score values are as follows: -----R Neck: 0.4 -----L Neck: 0.0 -----R Total: 1.8 -----L Total: 1.3 Bone mineral density BASELINE Bone mineral density about the L Wrist (g/cm2): 0.594 T Score values are as follows: -----Dist. R+U: -1.5 -----Prox. R+U: -0.5 -----Radius total: -1.3 Bone mineral density BASELINE IMPRESSION: Osteopenia (T Score between -2.5 and -1). There is slightly increased risk of fracture and the patient may be considered for treatment. Re-Screen 2-5 years. NOTE: T-SCORE=SD OF THE YOUNG ADULT MEAN.
== END | disposition home or self-care (01) ==
LOC: RADBDWWP 09:55
PROVIDERS: ATTEND Obstetrics & Gynecology
DX: M85.842 Other specified disorders of bone density and structure, left hand (principal); N95.1 Menopausal and female climacteric states
CPT/HCPCS: 77080

== ENCOUNTER → 2021-02-18 | Outpatient (CLI) | payer MEDICARE ==
--- NOTE | 2021-02-18 16:40 | US ---
EXAMINATION TYPE: US abdomen complete DATE OF EXAM: 02/18/2021 COMPARISON: NONE CLINICAL HISTORY: R74.8 Abnormal levels of other serum enzymes. Elevated liver enzymes and takes mul tiple medications: for diabetes, HTN,cholesterol, increased urinary frequency, acid reflux EXAM MEASUREMENTS: Liver Length: 9.7 x 4.9 x 3.6 cm Gallbladder Wall: 0.3 cm CBD: 0.3 cm Spleen: 9.6 cm Right Kidney: 9.7 x 4.9 x 3.6 cm Left Kidney: 9.9 x 4.3 x 5.5 cm Pancreas: hyperechoic Liver: hyperechoic to right renal cortex and right lobe is attenuated posteriorly suggesting fatty l iver Gallbladder: hyperechoic focus noted on posterior wall for length of gallbladder and may be sludge v s.non shadowing stones; wall thickness is at upper limits of normal Evidence for sonographic Silvestre's sign: no CBD: wnl Spleen: wnl Right Kidney: No hydronephrosis or masses seen Left Kidney: No hydronephrosis or masses seen Upper IVC: wnl Abd Aorta: size is wnl IMPRESSION: 1. Suspected sludge within the gallbladder. Gallbladder wall is borderline thickened. 2. Mild fatty infiltration of the liver.
== END | disposition home or self-care (01) ==
LOC: RADUSWWP 09:26
PROVIDERS: ATTEND Internal Medicine
DX: K76.0 Fatty (change of) liver, not elsewhere classified (principal); K21.9 Gastro-esophageal reflux disease without esophagitis
CPT/HCPCS: 76700

== ENCOUNTER → 2021-03-07 | Outpatient (CLI) | payer MEDICARE ==
--- NOTE | 2021-03-07 15:52 | NM ---
Nuclear medicine hepatobiliary scan. HISTORY: Pain. DOSAGE: The patient seems 8 ounces of ensure plus and 4.2 mCi of Technetium 99m Choletec. FINDINGS: There is normal hepatic extraction. The gallbladder is seen by 20 minutes. There is bilia ry to bowel clearance by 20 minutes. Ejection fraction is 21%. IMPRESSION: 1. Abnormal ejection fraction of 21% correlate for biliary dyskinesia.
== END | disposition home or self-care (01) ==
LOC: RADNMMAIN 12:37
PROVIDERS: ATTEND Internal Medicine
DX: R10.9 Unspecified abdominal pain (principal)
CPT/HCPCS: 78226; A9537

== ENCOUNTER 2021-04-20 07:07 | Day surgery (SDC) | payer MEDICARE ==
[2021-04-15 14:59] VITALS: BMI 29.2
[~2021-04-20 07:07] MED LIST changes: -BACITRACIN 50,000 UNIT, POLYMYXIN B 500,000 UNIT in SODIUM CHLORIDE 0.9% IRRIGATIO 1,00... IRRIGATION ONE; -DEXAMETHASONE SOD PHOSPHATE 10 MG/ML 1 ML VIAL IV ONE; +LIDOCAINE 1% (10MG/ML) FOR IV START INTRADERMA PRN; -MIDAZOLAM 2 MG/2 ML VIAL IV PRN; -ONDANSETRON 4 MG/2 ML VIAL IVP ONE; -SCOPOLAMINE 1.5MG/72HR PATCH TRANSDERM ONE; -ceFAZolin 2 GM in SODIUM CHLORIDE 0.9% 100 ML IVPB ONE; -fentaNYL (PF) 50 MCG/ML 2 ML AMP IV PRN
[2021-04-20 07:56] VITALS: RESP 16; TEMP 96.8
[2021-04-20] MEDS ORDERED: PROPOFOL 10 MG/ML 20 ML VIAL IV ONE (08:09)
[2021-04-20 08:12] LABS: Glucose,Whole Blood 136 mg/dL (75-99)
--- NOTE | 2021-04-20 08:26 | P.PCN ---
Date of Procedure: 04/20/21 Procedure(s) Performed: BRIEF HISTORY: Patient is a 61-year-old pleasant 8 female scheduled for an elective colonoscopy as a part of screening for colorectal neoplasia. PROCEDURE PERFORMED: Colonoscopy snare polypectomy. PREOPERATIVE DIAGNOSIS: Screening for colon cancer. IV sedation per Anesthesia. PROCEDURE: After informed consent was obtained, the patient, was brought into the endoscopy unit. IV sedation was administered by Anesthesia under continuous monitoring. Digital rectal examination was normal. Initially the Olympus CF-160 flexible video colonoscope was then inserted in the rectum, gradually advanced into the cecum without any difficulty. Careful examination was performed as the scope was gradually being withdrawn. Ileocecal valve and the appendiceal orifice were visualized and appeared normal. Prep was excellent. The cecum there was a 5-6 mm sessile polyp removed by snare polypectomy. Mucosa of the cecum, ascending colon, transverse colon, descending colon, sigmoid colon, and rectum appeared normal. Retroflexion was performed in the rectum and no lesions were seen. The patient tolerated the procedure well. IMPRESSION: 5-6 mm sessile cecal polyp status post polypectomy RECOMMENDATIONS: Findings of this examination were discussed with the patient as well as her family. She was advised to follow with the biopsy results. If the biopsy results and adenoma she can have a repeat colonoscopy in 5 years.
[2021-04-20 08:46] VITALS: BP 115/72; PULSE 65
== END 2021-04-20 09:10 ==
LOC: ORWHC2ENDO 07:07
PROVIDERS: ATTEND Internal Medicine Gastroenterology
DX: Z12.11 Encounter for screening for malignant neoplasm of colon (principal); D12.0 Benign neoplasm of cecum; I10 Essential (primary) hypertension; E11.9 Type 2 diabetes mellitus without complications; E78.5 Hyperlipidemia, unspecified; F41.9 Anxiety disorder, unspecified; F32.9 Major depressive disorder, single episode, unspecified; Z79.84 Long term (current) use of oral hypoglycemic drugs; Z79.82 Long term (current) use of aspirin; Z91.040 Latex allergy status; Z88.8 Allergy status to other drugs, medicaments and biological substances; Z88.2 Allergy status to sulfonamides
CPT/HCPCS: 45385; 88305; J2704

== ENCOUNTER → 2021-09-30 | Outpatient (CLI) | payer MEDICARE ==
--- NOTE | 2021-10-04 14:43 | MM ---
Reason for exam: screening (asymptomatic). Last mammogram was performed 2 years and 6 months ago. History: Patient is postmenopausal. Family history of breast cancer in sister at age 50. Physical Findings: A clinical breast exam by your physician is recommended on an annual basis and results should be correlated with mammographic findings. MG Screening Mammo w CAD Bilateral CC and MLO view(s) were taken. Prior study comparison: April 02, 2019, bilateral MG 3d screening mammo w/cad. February 18, 2018, bilateral MG 3d screening mammo w/cad. The breast tissue is heterogeneously dense. This may lower the sensitivity of mammography. There are benign appearing vascular calcifications bilaterally. There is chronic nodularity in the left breast. There is no discrete abnormality. ASSESSMENT: Benign, BI-RAD 2 RECOMMENDATION: Routine screening mammogram of both breasts in 1 year.
== END | disposition home or self-care (01) ==
LOC: RADMAMWWP 10:32
PROVIDERS: ATTEND Internal Medicine
DX: Z12.31 Encounter for screening mammogram for malignant neoplasm of breast (principal); Z78.0 Asymptomatic menopausal state; Z80.3 Family history of malignant neoplasm of breast
CPT/HCPCS: 77067

== ENCOUNTER → 2022-05-25 | Outpatient (CLI) | payer MEDICARE ==
--- NOTE | 2022-05-26 07:17 | US ---
EXAMINATION TYPE: US pelvic complete DATE OF EXAM: 05/25/2022 COMPARISON: 08/20/2018 CLINICAL HISTORY: Post menopausal bleeding N95.0. TECHNIQUE: . Transabdominal sonographic images of the pelvis were acquired. EXAM MEASUREMENTS: Uterus: 7.3 x 2.0 x 3.5 cm Endometrial Stripe: 0.40 cm Right Ovary: 2.8 x 1.4 x 2.2 cm Left Ovary: 2.4 x 1.2 x 2.0 cm 1. Uterus: Anteverted wnl 2. Endometrium: wnl 3. Right Ovary: wnl 4. Left Ovary: wnl 5. Bilateral Adnexa: wnl 6. Posterior cul-de-sac: wnl IMPRESSION: No significant abnormality appreciated.
== END | disposition home or self-care (01) ==
LOC: RADUSWWP 15:53
PROVIDERS: ATTEND Obstetrics & Gynecology
DX: N95.0 Postmenopausal bleeding (principal)
CPT/HCPCS: 76856

== ENCOUNTER → 2022-06-02 | Outpatient (CLI) | payer MEDICARE ==
--- NOTE | 2022-06-05 08:50 | BD ---
EXAMINATION TYPE: Axial Bone Density DATE OF EXAM: 06/02/2022 COMPARISON: 04/18/2019 CLINICAL HISTORY: 62 years year old Female. ICD-10 CODE: M85.88 oth disorder of bne structure/densit y,N95.1 Post jewell Height: 64 IN Weight: 149 LBS FRAX RISK QUESTIONS: History of Fracture in Adulthood: RT HUMERUS AGE 57 RISK FACTORS HISTORY OF: Surgery to Spine: L SPINE SURGERY 3 SURGERIES IN LAST 20 YEARS Active: YES Diet low in dairy products/other sources of calcium: YES Postmenopausal woman: AGE 52 MEDICATIONS: Additional Medications: CALCIUM, VIT D, METFORMIN, GLIPIZIDE, BLADDER FREQUENCY MEDS, CHOLESTEROL, BL OOD PRESSURE MEDS EXAM MEASUREMENTS: Bone mineral densitometry was performed using the [employer] System. Bone mineral density about the R hip (g/cm2): 1.092 Bone mineral density about the L hip (g/cm2): 1.010 T Score values are as follows: -----R Neck: 0.4 -----L Neck: -0.2 -----R Total: 1.8 -----L Total: 1.4 Bone mineral density has: Increased 0.1% since study of: 04/18/2019 Bone mineral density about the L Wrist (g/cm2): 0.599 T Score values are as follows: -----Dist. R+U: -1.6 -----Prox. R+U: -0.3 -----Radius total: -1.3 Bone mineral density has: Increased 2.0% since study of: 04/18/2019 FRAX%s: The graph provided illustrates a 5.2 chance for a major osteoporotic fx and a 0.3 chance for the hips probability for fx in 10 years time. IMPRESSION: Osteopenia (T Score between -2.5 and -1). There is slightly increased risk of fracture and the patient may be considered for treatment. Re-Screen 2-5 years. NOTE: T-SCORE=SD OF THE YOUNG ADULT MEAN.
== END | disposition home or self-care (01) ==
LOC: RADBDWWP 14:18
PROVIDERS: ATTEND Obstetrics & Gynecology
DX: M85.89 Other specified disorders of bone density and structure, multiple sites (principal); N95.1 Menopausal and female climacteric states
CPT/HCPCS: 77080

== ENCOUNTER → 2022-07-21 | Outpatient (CLI) | payer MEDICARE ==
--- NOTE | 2022-07-21 11:46 | XR ---
EXAMINATION TYPE: XR shoulder complete LT DATE OF EXAM: 07/21/2022 COMPARISON: NONE HISTORY: Pain TECHNIQUE: Three views are submitted. FINDINGS: The osseous structures are intact. There is no acute fracture or dislocation. There is AC joint arth ropathy. Postsurgical change overlying the cervical spine. IMPRESSION: 1. AC joint arthropathy.
--- NOTE | 2022-07-21 11:48 | XR ---
EXAMINATION TYPE: XR ankle complete LT DATE OF EXAM: 07/21/2022 COMPARISON: NONE HISTORY: Pain FINDINGS: Three views of the ankle demonstrate the ankle mortise to be intact and symmetric. The joint spaces are preserved. The osseous structures are intact. Small calcaneal spur noted. IMPRESSION: 1. No definite acute fracture or dislocation, if symptoms persist follow-up study in 7 to 10 days wou ld be suggested.
--- NOTE | 2022-07-21 12:06 | XR ---
EXAMINATION TYPE: XR humerus LT DATE OF EXAM: 07/21/2022 CLINICAL HISTORY: Pain TECHNIQUE: Two views of the left humerus are obtained. COMPARISON: None. FINDINGS: There is no acute fracture or dislocation seen in the left humerus. She joint arthropathy noted. IMPRESSION: No acute fracture or dislocation is evident in the left humerus.
== END | disposition home or self-care (01) ==
LOC: RADXRMAIN 11:05
PROVIDERS: ATTEND Internal Medicine
DX: M19.012 Primary osteoarthritis, left shoulder (principal); M25.572 Pain in left ankle and joints of left foot; M79.622 Pain in left upper arm

== ENCOUNTER → 2022-07-31 | Outpatient (CLI) | payer MEDICARE ==
[2022-07-31 23:07] LABS: Basophils # (A) 0.03 X 10*3/uL (0.00-0.10); Basophils % (A) 0.4 %; Eosinophils # (A) 0.14 X 10*3/uL (0.04-0.35); Eosinophils % (A) 1.8 %; Immature Grans, Automated 0.1 %; Lymphocytes # (A) 2.61 X 10*3/uL (0.90-5.00); Lymphocytes % (A) 33.4 %; MCH 26.3 pg (27.0-32.0); MCV 87.5 fL (80.0-97.0); Mean Platelet Volume 11.6 fL (9.5-12.2); Monocytes # (A) 0.38 X 10*3/uL (0.20-1.00); Monocytes % (A) 4.9 %; NRBC Per 100 WBC 0 /100 WBCS (0.0-0.0); Neutrophils # (A) 4.64 X 10*3/uL (1.80-7.70); Neutrophils % (A) 59.4 %; Platelet Count 300 X 10*3/uL (140-440); RBC 4.57 X 10*6/uL (4.10-5.20); RDW 15.3 % (11.5-14.5); WBC 7.81 X 10*3/uL (4.50-10.00)
== END | disposition home or self-care (01) ==
LOC: LABPAT 14:58
PROVIDERS: ATTEND Obstetrics & Gynecology
DX: Z01.818 Encounter for other preprocedural examination (principal); I49.3 Ventricular premature depolarization; I45.10 Unspecified right bundle-branch block; R94.31 Abnormal electrocardiogram [ECG] [EKG]
CPT/HCPCS: 85025; 93005

== ENCOUNTER → 2022-12-22 | Outpatient (CLI) | payer MEDICARE ==
--- NOTE | 2022-12-25 19:01 | MM ---
Reason for Exam: Screening (asymptomatic). Last mammogram was performed 1 year(s) and 3 month(s) ago. Patient History: Menarche at age 11. First Full-Term at age 20. Postmenopausal. Sister had breast cancer, age 50. Risk Values: Elsy 5 year model risk: 3.1%. NCI Lifetime model risk: 12.1%. Prior Study Comparison: 02/18/2018 Bilateral Screening Mammogram, [facility]. 04/02/2019 Bilateral Screening Mammogram, [facility]. 09/30/2021 Bilateral Screening Mammogram, [facility]. Tissue Density: The breast tissue is heterogeneously dense. This may lower the sensitivity of mammography. Findings: Analyzed By CAD. Pattern appears symmetrical and stable. Benign vascular calcification is present bilaterally. Chronic nodularities within the left breast. No significant interval changes. No suspicious groups of microcalcifications, spiculated or lobular masses, architectural distortion or other secondary signs of malignancy are mammographically apparent. Overall Assessment: Benign, BI-RAD 2 Management: Screening Mammogram of both breasts in 1 year. A negative mammogram report should not preclude additional follow up of suspicious palpable abnormalities. Patient should continue monthly self breast exam. A clinical breast exam by your physician is recommended on an annual basis and results should be correlated with mammographic findings. Electronically signed and approved by: Pascual Veloz D.O. Radiologis
== END | disposition home or self-care (01) ==
LOC: RADMAMWWP 12:04
PROVIDERS: ATTEND Internal Medicine
DX: Z12.31 Encounter for screening mammogram for malignant neoplasm of breast (principal); Z78.0 Asymptomatic menopausal state; Z80.3 Family history of malignant neoplasm of breast
CPT/HCPCS: 77063; 77067

== ENCOUNTER → 2023-01-11 | Outpatient (CLI) | payer MEDICARE ==
--- NOTE | 2023-01-11 11:41 | XR ---
EXAMINATION TYPE: XR chest 2V DATE OF EXAM: 01/11/2023 11:37 AM COMPARISON: Chest radiographs from 05/23/2018 TECHNIQUE: XR chest 2V Frontal and lateral views of the chest. CLINICAL INDICATION:Female, 62 years old with history of R05.9 cough; FINDINGS: Lungs/Pleura: There is no evidence of pleural effusion, focal consolidation, or pneumothorax. Pulmonary vascularity: Unremarkable. Heart/mediastinum: Cardiomediastinal silhouette is unremarkable. Musculoskeletal: No acute osseous pathology. There is fixation hardware in the lower cervical spine. Right shoulder arthroplasty changes which appears intact. IMPRESSION: No acute cardiopulmonary disease/process.
== END | disposition home or self-care (01) ==
LOC: RADXRMAIN 11:28
PROVIDERS: ATTEND Internal Medicine
DX: R05.9 Cough, unspecified (principal)
CPT/HCPCS: 71046

== ENCOUNTER → 2023-05-17 | Outpatient (CLI) | payer MEDICARE ==
[2023-05-17 11:16] LABS: African American GFR (CKD) >90 (>60 ml/min/1.73 sqM); Blood Urea Nitrogen 15 mg/dL (7-17); Non-African American GFR(CKD) >90 (>60 ml/min/1.73 sqM)
--- NOTE | 2023-05-17 20:36 | CT ---
EXAMINATION TYPE: CT ChestAbdPelvis w con DATE OF EXAM: 05/17/2023 INDICATION: c/o cough COMPARISON: 07/19/2015 CT DLP: 552.5 mGycm CONTRAST: Performed with Oral Contrast and with IV Contrast, patient injected with 100 mL of Isovue 300. TECHNIQUE: Axial images at 5 mm thick sections. Reconstructed images in the coronal plane. Delayed images through the kidneys. FINDINGS: CT CHEST: Portion of the thyroid visualized is normal. No suspicious lung nodules or focal infiltrates are present. No enlarged mediastinal or hilar adenopathy is evident. The ascending aorta diameter at the level of the main pulmonary artery is 3.2 cm. The main pulmonary artery diameter at the bifurcation is 2.[address] ABDOMEN: Liver: There is mild fatty infiltration to the liver. Spleen: Normal Pancreas: Normal Adrenal glands: The adrenal glands are normal. Gallbladder: Some layering sludge within the gallbladder may be small gallstones or sludge. Kidneys: No masses are evident. No hydronephrosis is present. No cysts are present. Delayed images were obtained through the kidneys, which remain unremarkable. Aorta: Vascular calcification is within the aorta. Inferior vena cava: Normal. CT PELVIS: Loops of bowel within the abdomen and pelvis are normal. There are loops of bowel which are incom pletely distended or lack oral contrast limiting their evaluation. Appendix: Normal as visualized. Urinary bladder: Normal. Genitourinary structures: Uterus is normal. Adnexa are normal. Osseous structures: No suspicious lytic or sclerotic lesions. Facet changes are present. Fixation ped icle screws are present in the lumbar spine. Cervical anterior fusion evident. IMPRESSION: 1. No acute or chronic pulmonary process. 2. No acute abdomen or pelvic changes. 3. Cholelithiasis or sludge within the gallbladder.
== END | disposition home or self-care (01) ==
LOC: RADCTMAIN 09:50
PROVIDERS: ATTEND Internal Medicine
DX: R05.3 Chronic cough (principal)
CPT/HCPCS: 82565; 84520; 71260; 74177; 36415; Q9967

== ENCOUNTER → 2023-09-03 | Outpatient (CLI) | payer MEDICARE ==
--- NOTE | 2023-09-03 10:35 | XR ---
EXAMINATION TYPE: XR finger LT DATE OF EXAM: 09/03/2023 COMPARISON: NONE HISTORY: Pain TECHNIQUE: Three views are submitted. FINDINGS: The osseous structures are intact. Mild arthropathy of the DIP, PIP and MCP joints of the second digi t. There is no acute fracture or dislocation. Along the palmar surface of the distal phalanx second digit there is a linear 2 mm density which could represent foreign body. IMPRESSION: 1. No definite acute fracture or dislocation if symptoms persist, follow-up study in 7 to 10 days wo uld be suggested. 2. Possible tiny foreign body of indeterminate age adjacent to the distal phalanx second digit correl ate clinically
--- NOTE | 2023-09-03 10:38 | XR ---
EXAMINATION TYPE: XR hand complete LT DATE OF EXAM: 09/03/2023 COMPARISON: NONE HISTORY: Pain TECHNIQUE: Three views are submitted. FINDINGS: The osseous structures are intact. Mild arthropathy of the DIP, PIP and MCP joints of all digits. The re is no acute fracture or dislocation. Along the palmar surface of the distal phalanx second digit there is a linear 2 mm density which could represent foreign body mild narrowing of first carpometaca rpal joint. IMPRESSION: 1. No definite acute fracture or dislocation if symptoms persist, follow-up study in 7 to 10 days wo uld be suggested. 2. Possible tiny foreign body of indeterminate age adjacent to the distal phalanx second digit correl ate clinically
== END | disposition home or self-care (01) ==
LOC: RADXRMAIN 09:47
PROVIDERS: ATTEND Internal Medicine
DX: S63.611A Unspecified sprain of left index finger, initial encounter (principal); M79.642 Pain in left hand

== ENCOUNTER → 2024-02-07 | Outpatient (CLI) | payer MEDICARE ==
--- NOTE | 2024-02-12 08:54 | MM ---
Reason for Exam: Screening (asymptomatic). Last mammogram was performed 1 year(s) and 1 month(s) ago. Patient History: Menarche at age 11. First Full-Term at age 20. Postmenopausal. Sister had breast cancer, age 50. Risk Values: Elsy 5 year model risk: 3.2%. NCI Lifetime model risk: 11.7%. Prior Study Comparison: 04/02/2019 Bilateral Screening Mammogram, [facility]. 09/30/2021 Bilateral Screening Mammogram, [facility]. 12/22/2022 Bilateral MG 3D screening mammo w/cad, [facility]. Tissue Density: There are scattered areas of fibroglandular density. Findings: Analyzed By CAD. Right breast: There is no suspicious group of microcalcifications or new suspicious mass. Benign-appearing calcifications right breast. Left breast: There is no suspicious group of microcalcifications or new suspicious mass. Benign-appearing calcifications left breast. Overall Assessment: Benign, BI-RAD 2 Management: Screening Mammogram of both breasts in [address] [facility] will attempt to contact patient to return for supplemental views and ultrasound if indicated. Patient should continue monthly self-breast exams. A clinical breast exam by your physician is recommended on an annual basis. This exam should not preclude additional follow-up of suspicious palpable abnormalities. Note on Elsy scores and lifetime risk: 1. A Elsy score greater than 3% is considered moderate risk. If this is the case, consider specialist referral to assess eligibility for a risk reducing agent. 2. If overall lifetime risk for the development of breast cancer is 20% or higher, the patient may qualify for future screening with alternating mammogram and breast MRI. Electronically signed and approved by: Pacheco Nguyen DO
== END | disposition home or self-care (01) ==
LOC: RADMAMWWP 08:31
PROVIDERS: ATTEND Internal Medicine
DX: Z12.31 Encounter for screening mammogram for malignant neoplasm of breast (principal); R92.323 Mammographic fibroglandular density, bilateral breasts; Z78.0 Asymptomatic menopausal state; Z80.3 Family history of malignant neoplasm of breast
CPT/HCPCS: 77067

== ENCOUNTER → 2024-05-19 | Outpatient (CLI) | payer MEDICARE ==
[2024-05-19 15:01] LABS: Basophils # (A) 0.02 X 10*3/uL (0.00-0.10); Basophils % (A) 0.3 %; Eosinophils # (A) 0.17 X 10*3/uL (0.04-0.35); Eosinophils % (A) 2.5 %; HCT 41.1 % (37.2-46.3); HGB 13.2 g/dL (12.0-15.0); Lymphocytes # (A) 2.06 X 10*3/uL (0.90-5.00); Lymphocytes % (A) 30.3 %; MCH 28.6 pg (27.0-32.0); MCHC 32.1 g/dL (32.0-37.0); MCV 89.2 FL (80.0-97.0); Mean Platelet Volume 10.3 FL (9.5-12.2); Monocytes # (A) 0.34 X 10*3/uL (0.20-1.00); NRBC Per 100 WBC 0 X 10*3/uL (0.00-0.01); Neutrophils # (A) 4.18 X 10*3/uL (1.80-7.70); Neutrophils % (A) 61.5 %; Platelet Count 254 X 10*3/uL (140-440); RBC 4.61 X 10*6/uL (4.10-5.20); RDW 12.6 % (11.5-14.5)
[2024-05-19 15:24] LABS: ALT 15 U/L (8-44); AST 25 U/L (13-35); Albumin 4.3 g/dL (3.8-4.9); Albumin/Globulin Ratio 2.05 Ratio (1.60-3.17); Alkaline Phosphatase 86 U/L (41-126); BUN/Creat Ratio 25.17 Ratio (12.00-20.00); Blood Urea Nitrogen 15.1 mg/dL (9.0-27.0); Calcium 9.7 mg/dL (8.7-10.3); Carbon Dioxide 26.9 mmol/L (21.6-31.8); Chloride 103 mmol/L (96-109); Chol/HDL Ratio 3.09 Ratio; Globulin 2.1 g/dL (1.6-3.3); Glucose 132 mg/dL (70-110); LDL Cholesterol,Calculated 105.4 mg/dL (0.0-131.0); Potassium 4.4 mmol/L (3.5-5.5); Sodium 140 mmol/L (135-145); Total Bilirubin 0.4 mg/dL (0.3-1.2); Total Protein 6.4 g/dL (6.2-8.2)
== END | disposition home or self-care (01) ==
LOC: LABWHC1 11:24
PROVIDERS: ATTEND Internal Medicine
DX: I10 Essential (primary) hypertension (principal); E78.2 Mixed hyperlipidemia; M85.80 Other specified disorders of bone density and structure, unspecified site
CPT/HCPCS: 36415; 80053; 80061; 82306; 83036; 83735; 84443; 85025

== ENCOUNTER 2024-09-22 14:29 | Emergency (ER) | payer MEDICARE ==
[2024-09-22 14:41] VITALS: TEMP 98.1
--- NOTE | 2024-09-22 15:09 | ED ---
General Adult HPI - General Chief complaint: Extremity Injury, Lower Stated complaint: L knee pain Time Seen by Provider: 09/22/24 14:42 Source: patient, RN notes reviewed Mode of arrival: wheelchair Limitations: no limitations - History of Present Illness Initial comments: 64 year old female presents to the emergency department for evaluation of left k nee pain and neck pain following a fall that occurred 5 days ago. She tripped over a piece of shelving causing her to fall. She states that she hit both of her knees on the ground and hit her head on the leg. She does not believe she lost consciousness. She continues to have pain in her left knee. Pain is worse with ambulation and movement of the knee. She also endorses pain in her neck. She reports a history of neck surgery. Denies blood thinners. - Related Data Home Medications Medication Instructions Recorded Confirmed Losartan Potassium 25 mg PO DAILY 07/16/15 08/23/22 Tolterodine Tartrate [Detrol LA] 4 mg PO DAILY 07/16/15 08/25/22 Pantoprazole [Protonix] 40 mg PO DAILY 04/15/21 08/25/22 Pravastatin Sodium [Pravachol] 40 mg PO HS 04/15/21 08/25/22 glipiZIDE [Glucotrol] 5 mg PO DAILY 04/15/21 08/25/22 metFORMIN HCL ER [Glucophage XR] 500 mg PO BID 04/15/21 08/25/22 Calcium Carbonate/Vitamin D3 1 each PO BID 08/23/22 08/25/22 [Calcium 600 mg-D3 20 mcg (800 unit)] Ferrous Sulfate [Feosol] 65 mg PO DAILY 08/23/22 08/25/22 Loratadine [Claritin] 10 mg PO DAILY 08/23/22 08/25/22 Previous Rx's Medication Instructions Recorded LORazepam [Ativan] 1 mg PO TID PRN #30 tab 07/22/15 Allergies Allergy/AdvReac Type Severity Reaction Status Date / Time oxycodone HCl Allergy Severe Stopped Verified 09/22/24 14:40 [From OxyContin] Breathing latex Allergy Rash/Hives Verified 09/22/24 14:40 Sulfa (Sulfonamide Allergy Rash/Hives Verified 09/22/24 14:40 Antibiotics) sulfamethoxazole Allergy Rash/Hives Verified 09/22/24 14:40 [From Septra] trimethoprim [From ] Allergy Rash/Hives Verified 09/22/24 14:40 bandaids Allergy Rash/Hives Uncoded 09/22/24 14:40 Review of Systems ROS Statement: Those systems with pertinent positive or pertinent negative responses have been documented in the HPI. ROS Other: All systems not noted in ROS Statement are negative. Past Medical History Past Medical History: Diabetes Mellitus, GERD/Reflux, Hyperlipidemia, Hypertension Additional Past Medical History / Comment(s): hx migraines, overactive bladder, post menopausal bleeding, hx. of uterine polyps History of Any Multi-Drug Resistant Organisms: None Reported Past Surgical History: Appendectomy, Back Surgery, Cholecystectomy, Orthopedic Surgery, Tubal Ligation Additional Past Surgical History / Comment(s): rt shoulder surgery-fx, 03-27-16 CERVICAL DISCECTOMY/FUSION C5-6, C6-7, lumbar fusion, D&C Past Anesthesia/Blood Transfusion Reactions: No Reported Reaction Additional Past Anesthesia/Blood Transfusion Reaction / Comment(s): BLOOD TRANSFUSION IN PAST-NO REACTION. Past Psychological History: Anxiety, Depression Smoking Status: Never smoker Past Alcohol Use History: Occasional Past Drug Use History: None Reported - Past Family History Sister(s) Family Medical History: Cancer Mother Family Medical History: Diabetes Mellitus, Hypertension Father Family Medical History: COPD General Exam Limitations: no limitations General appearance: alert, in no apparent distress Head exam: Present: atraumatic, normocephalic, normal inspection Eye exam: Present: normal appearance, PERRL, EOMI. Absent: scleral icterus, conjunctival injection, periorbital swelling ENT exam: Present: normal exam, mucous membranes moist Neck exam: Present: normal inspection, tenderness, full ROM. Absent: meningismus, lymphadenopathy Respiratory exam: Present: normal lung sounds bilaterally. Absent: respiratory distress, wheezes, rales, rhonchi, stridor Cardiovascular Exam: Present: regular rate, normal rhythm, normal heart sounds. Absent: systolic murmur, diastolic murmur, rubs, gallop, clicks Extremities exam: Present: full ROM, tenderness (patella of left knee, swelling to medial left knee), normal capillary refill. Absent: pedal edema, joint swelling, calf tenderness Neurological exam: Present: alert, oriented X3 Psychiatric exam: Present: normal affect, normal mood Skin exam: Present: warm, dry, intact, normal color. Absent: rash Course Vital Signs 09/22/24 14:37 Temperature 98.1 F Pulse Rate 82 Respiratory 18 Rate Blood Pressure 129/80 O2 Sat by Pulse 100 Oximetry Medical Decision Making - Medical Decision Making Was pt. sent in by a medical professional or institution ([facility]LA[facility] Gallardo, [employer], urgent care, hospital, or alf...) When possible be specific @ -No Did you speak to anyone other than the patient for history (EMS, parent, family, police, friend...)? What history was obtained from this source @ -No Did you review nursing and triage notes (agree or disagree)? Why? @ -I reviewed and agree with nursing and triage notes Were old charts reviewed (outside hosp., previous admission, EMS record, old EKG, old radiological studies, urgent care reports/EKG's, alf records)? Report findings @ -No old charts were reviewed Differential Diagnosis (chest pain, altered mental status, abdominal pain women, abdominal pain men, vaginal bleeding, weakness, fever, dyspnea, syncope, headache, dizziness, GI bleed, back pain, seizure, CVA, palpatations, mental health, musculoskeletal)? @ -Differential Musculoskeletal Muscular strain, contusion, ligament sprain, fracture, arthritis, septic a rthritis, bursitis, cellulitis, muscle spasm, nerve compression, DVT, arterial occlusion, herpes zoster, electrolyte abnormality, tumor.... This is not meant to be in all inclusive list EKG interpreted by me (3pts min.). @ -None X-rays interpreted by me (1pt min.). @ -X-ray of the left knee shows no evidence of acute fracture or dislocation, Patella edema CT interpreted by me (1pt min.). @ -CT of the brain and C-spine showed no evidence of acute intracranial process, no acute fracture or dislocation, hardware appears to be intact U/S interpreted by me (1pt. min.). @ -None done What testing was considered but not performed or refused? (CT, X-rays, U/S, labs)? Why? @ -None What meds were considered but not given or refused? Why? @ -None Did you discuss the management of the patient with other professionals (professionals i.e. VLADISLAV Gallardo, [employer], lab, RT, psych nurse, social sciences lecturer, inventory checker, teacher, employment officer, porter sample case)? Give summary @ -No Was smoking cessation discussed for >3mins.? @ -No Was critical care preformed (if so, how long)? @ -No Were there social determinants of health that impacted care today? How? (Homelessness, low income, unemployed, alcoholism, drug addiction, transportation, low edu. Level, literacy, decrease access to med. care, [facility], rehab)? @ -No Was there de-escalation of care discussed even if they declined (Discuss DNR or withdrawal of care, Hospice)? DNR status @ -No What co-morbidities impacted this encounter? (DM, HTN, Smoking, COPD, CAD, Cancer, CVA, ARF, Chemo, Hep., AIDS, mental health diagnosis, sleep apnea, mor bid obesity)? @ -None Was patient admitted / discharged? Hospital course, mention meds given and route, prescriptions, significant lab abnormalities, going to OR and other pertinent info. @ -Discharge. Patient presented emergency department for evaluation of left knee pain and neck pain following a fall. This occurred last week. X-rays of the left knee obtained revealing no acute fracture or dislocation, there is prepatellar edema. CT of the brain and C-spine shows no evidence of acute intracranial process, no acute fracture or dislocation and the hardware appears to be intact. Patient was administered crutches. She is advised to follow-up with orthopedics. She is understanding agreeable to plan patient stable at time of discharge. Case discussed with Dr. Denis Undiagnosed new problem with uncertain prognosis? @ -No Drug Therapy requiring intensive monitoring for toxicity (Heparin, Nitro, Insulin, Cardizem)? @ -No Were any procedures done? @ -No Diagnosis/symptom? @ -Knee sprain, neck sprain Acute, or Chronic, or Acute on Chronic? @ -Acute Uncomplicated (without systemic symptoms) or Complicated (systemic symptoms)? @ -Uncomplicated Side effects of treatment? @ -No Exacerbation, Progression, or Severe Exacerbation? @ -No Poses a threat to life or bodily function? How? (Chest pain, [place], [place], pneumonia, PE, COPD, DKA, ARF, appy, cholecystitis, CVA, Diverticulitis, Homicidal, Suicidal, threat to staff... and all critical care pts) @ -No Disposition Clinical Impression: Left knee sprain, Neck sprain Disposition: HOME SELF-CARE Condition: Stable Instructions (If sedation given, give patient instructions): Knee Sprain (ED) Additional Instructions: Please follow up with your primary care provider. Return to the emergency department for new or worsening symptoms. Is patient prescribed a controlled substance at d/c from ED?: No Referrals: Raymundo Haji DO [Primary Care Provider] - 1-2 days Mac Simons MD [Medical Doctor] - 1-2 days
--- NOTE | 2024-09-22 15:40 | XR ---
EXAMINATION TYPE: XR knee 4V LT DATE OF EXAM: 09/22/2024 3:35 PM COMPARISON: None CLINICAL INDICATION: Female, 64 years old with history of fall; PHH, pain TECHNIQUE: XR knee 4V LT 4 views submitted. FINDINGS: Prepatellar soft tissue edema is present. No evidence of any acute osseous pathology, or j oint effusion is noted. Tricompartmental osteophyte formation involving the femoral condyles, tibial plateau and patella. Mild joint space narrowing. IMPRESSION: 1. Prepatellar edema without evidence of acute fracture. 2. Mild tricompartmental osteoarthritic changes. [facility], , 09/22/2024 3:38 PM
--- NOTE | 2024-09-22 16:09 | CT ---
EXAMINATION TYPE: CT brain cspine wo con CT DLP: 1325.2 mGycm, Automated exposure control for dose reduction was used. DATE OF EXAM: 09/22/2024 3:43 PM COMPARISON: CT brain 01/21/2018, CT brain C-spine 07/16/2015. CLINICAL INDICATION:Female, 64 years old with history of fall; fall on 09/17/24, left head and neck jeffrey n, no LOC, pain TECHNIQUE: Brain: Multiple axial CT images of the brain were obtained without IV contrast. Cspine: Axial CT images from the skull base to the inferior aspect of T2 we obtained without intraven ous contrast. Coronal and sagittal reformatted images were also reviewed. FINDINGS: Brain: Extra-axial spaces: No abnormal extra-axial fluid collections. Ventricular system: Within normal limits Cerebral parenchyma: No acute intraparenchymal hemorrhage or mass effect. The marie-white junction is well differentiated. Cerebellum: Unremarkable. Mass effect: No evidence of midline shift. Intracranial vasculature: unremarkable Soft tissues: Normal. Calvarium/osseous structures: No depressed skull fracture. Paranasal sinuses and mastoid air cells: Clear. Visualized orbits: Orbital contents are intact. Cervical spine: Fracture: None. Osseous structures: Postsurgical changes from anterior cervical fusion with disc spacers involving C5 -C7. However appears intact. Disc space narrowing with anterior osteophytosis at C4-C5. Vertebral alignment: Within normal limits. Spinal canal/Neural Foramina: No evidence of significant spinal canal narrowing. No evidence for sign ificant neural foraminal stenosis. Neck soft tissues: Prevertebral soft tissues are within normal limits. Other: The airway is patent. The lung apices are clear. IMPRESSION: 1. No acute intracranial process. 2. No evidence of cervical spine fracture. 3. Postsurgical changes from ACDF C5-C7. Hardware appears intact. Mild degenerative disc disease at C4-C5. [facility], , 09/22/2024 4:07 PM
[2024-09-22 17:33] VITALS: BP 120/76; PULSE 72; RESP 20
== END 2024-09-22 17:37 | disposition home or self-care (01) ==
LOC: EC 14:29
DX: S83.92XA Sprain of unspecified site of left knee, initial encounter (principal); S13.9XXA Sprain of joints and ligaments of unspecified parts of neck, initial encounter; W01.0XXA Fall on same level from slipping, tripping and stumbling without subsequent striking against object, initial encounter
CPT/HCPCS: 70450; 72125; 99284